=== PATIENT | female | born 1965 | race Caucasian/White ===

== ENCOUNTER 2019-06-26 06:07 | Observation (INO) | payer OTHER ==
[~2019-06-26] VITALS: Ht 167.6 cm; Wt 86.2 kg
[~2019-06-26 06:07] MED LIST: DIAZ5 PO; FIBROMYALGIA MED; HYDACE5 PO; PRED20 PO; PREG25 PO; TRAM50 PO; TRAMADOL PO
[2019-06-26] MEDS ORDERED: Prinivil10 MG (06:13)
[2019-06-26] MEDS ORDERED: PREG25 PO (06:13)
[2019-06-26 06:24] LABS: BASOPHILS ABSOLUTE AUTO 0.04 K/mm3 (0.00-0.23); BASOPHILS PERCENT AUTO 0 % (0-2); EOSINOPHILS PERCENT AUTO 0 % (0-6); Hematocrit 45.7 % (33.0-51.0); Hemoglobin 14.6 g/dL (11.5-16.0); IMMATURE GRAN ABSOLUTE AUTO 0.05 K/mm3 (0.00-0.10); IMMATURE GRAN PERCENT AUTO 0 % (0-1); LYMPHOCYTES ABSOLUTE AUTO 1.24 K/mm3 (0.84-5.20); LYMPHOCYTES PERCENT AUTO 10 % (21-46); MONOCYTES PERCENT AUTO 4 % (4-13); Mean Corpuscular HGB 27.5 pg (26.0-34.0); Mean Corpuscular HGB Conc 31.9 g/dL (31.5-36.5); Mean Corpuscular Volume 86 fL (80-100); Mean Platelet Volume 12.1 fL (9.1-12.4); NEUTROPHILS PERCENT AUTO 86 % (41-73); Platelet Count 268 K/mm3 (150-400); RDW Coefficient Variation 14.4 % (11.7-14.2); Red Blood Cell Count 5.31 M/mm3 (3.80-5.20); White Blood Cell Count 12.73 K/mm3 (4.00-11.30)
[2019-06-26 06:42] LABS: Alanine Aminotransfer (ALT/SGP 30 U/L (12-78); Albumin, Blood 3.8 g/dL (3.4-5.0); Albumin/Globulin Ratio 0.9 (0.8-1.8); Alk Phos 172 U/L (50-136); Anion Gap 10 mmol/L (6-16); Aspartate Aminotrans (AST/SGOT 19 U/L (12-37); Bilirubin, Total 0.3 mg/dL (0.1-1.0); Blood Urea Nitrogen 9 mg/dL (8-24); Bun/Creatinine Ratio 12.3 (12.0-20.0); CO2, Blood 23 mmol/L (21-32); Calcium, Blood 9.7 mg/dL (8.5-10.1); Chloride, Blood 103 mmol/L (98-108); Creatinine, Blood 0.73 mg/dL (0.40-1.00); Globulin, Blood 4.2 g/dL (2.2-4.0); Glomerular Filtration Rate >60 (60-); Glucose, Blood 160 mg/dL (70-99); Potassium, Blood 3.5 mmol/L (3.5-5.5); Sodium, Blood 136 mmol/L (136-145)
[2019-06-26 08:59] LABS: Source, Urine Clean Catch
[2019-06-26 09:03] LABS: Bilirubin, Urine Neg (Neg); Blood, Urine 1+ (Neg); Glucose Qualitative, Urine Neg (Neg); Ketones, Urine Neg (Neg); Leukocyte Esterase, Urine Neg (Neg); Nitrite, Urine Neg (Neg); Protein, Urine Neg (Neg); Urobilinogen, Urine NORM (Normal)
[2019-06-26 09:04] LABS: Appearance, Urine Clear (Clear); Color, Urine No Color (P-Yellow)
[2019-06-26 09:12] LABS: Bacteria Not Seen /hpf; Red Blood Cells, Urine Rare /hpf (0-2); Squamous Epithelial Cells Few /hpf (Few); White Blood Cells, Urine Not Seen /hpf (0-5)
--- NOTE | 2019-06-26 19:34 | NUR ---
SHIFT SUMMARY PT A&OX4, VSS, S/P LAP DORIS, 4 GAUZE SITES CDI. PAIN MANAGED WITH 1 TAB NORCO. CHELI PO, DENIES N&V. VOIDING WELL. AMB SBA TO BRP. REPORT PROVIDED TO PAULO BARRIENTOS.
--- NOTE | 2019-06-27 06:00 | NUR ---
SHIFT SUMMARY POD 1 S/P LAP DORIS. ABD SURGICAL SITE X4 C/D/I. PAIN MANAGED WITH PO MEDICATION. TOLERATING PO INTAKE. VOIDING WELL, IND AMBULATION TO BATHROOM. ENCOURAGED AMBULATION IN HALLWAYS. CURRENTLY IN BED WATCHING TV WITH CALL LIGHT IN REACH. WILL CONT TO MONITOR AND GIVE REPORT TO ONCOMING RN.
[2019-06-27] MEDS ORDERED: Norco 10-325 T1 EACH PO (10:09)
--- NOTE | 2019-06-27 15:35 | NUR ---
DISCHARGE PT'S PAIN WELL CONTROLLED, TOLERATING DIET WELL, NOT PASSING GAS BUT DISCUSSED BOWEL CARE, SCRIPT SENT WITH PT. AMBULATED OUT. W/C OFFERED.
== END 2019-06-27 15:37 | disposition home or self-care (01) ==
LOC: ER 06:07 → SURS 06:08 → ER 08:10 → SURS 08:10 → ER 08:58 → SURS 09:05
PROVIDERS: Emergency Medicine; ADMIT Surgery
PROC: 0FT44ZZ Resection of Gallbladder, Percutaneous Endoscopic Approach (ICD-10-PCS; principal; 2019-06-26 13:00)
PROC: BF10YZZ Fluoroscopy of Bile Ducts using Other Contrast (ICD-10-PCS; principal; 2019-06-26 13:00)
DX: K80.10 Calculus of gallbladder with chronic cholecystitis without obstruction (principal); I10 Essential (primary) hypertension; F17.210 Nicotine dependence, cigarettes, uncomplicated; Z79.899 Other long term (current) drug therapy; Z88.2 Allergy status to sulfonamides
CPT/HCPCS: 36415; 74300; 76705; 80053; 81001; 83690; 85025; 88304; 93005; 93010; 96361; 96365; 96375; 96376; 99285-25; C1894; G0378; J1100; J1885; J2370; J2405; J2543; J2704; J2710; J2765; J3010; J7030; J7120

== ENCOUNTER 2021-12-08 10:13 | Emergency (ER) | payer OTHER ==
[~2021-12-08] VITALS: Ht 170.2 cm; Wt 86.2 kg
[~2021-12-08 10:13] MED LIST changes: +Norco 10-325 T1 EACH PO; +Prinivil10 MG
[2021-12-08 11:45] LABS: Influenza A, PCR NEGATIVE (NEGATIVE); Influenza B, PCR NEGATIVE (NEGATIVE); Resp Syncytial Virus, PCR NEGATIVE (NEGATIVE); SARS-Cov-2 (COVID-19) PCR, MMC NEGATIVE (NEGATIVE)
[2021-12-08 12:19] LABS: BASOPHILS ABSOLUTE AUTO 0.06 K/mm3 (0.00-0.23); BASOPHILS PERCENT AUTO 1 % (0-2); EOSINOPHILS ABSOLUTE AUTO 0.03 K/mm3 (0.00-0.68); EOSINOPHILS PERCENT AUTO 0 % (0-6); Hematocrit 43.9 % (33.0-51.0); Hemoglobin 14.5 g/dL (11.5-16.0); IMMATURE GRAN ABSOLUTE AUTO 0.05 K/mm3 (0.00-0.10); IMMATURE GRAN PERCENT AUTO 0 % (0-1); LYMPHOCYTES ABSOLUTE AUTO 1.88 K/mm3 (0.84-5.20); LYMPHOCYTES PERCENT AUTO 15 % (21-46); MONOCYTES ABSOLUTE AUTO 0.58 K/mm3 (0.16-1.47); MONOCYTES PERCENT AUTO 5 % (4-13); Mean Corpuscular HGB 27.3 pg (26.0-34.0); Mean Corpuscular Volume 83 fL (80-100); Mean Platelet Volume 11.1 fL (9.1-12.4); NEUTROPHILS ABSOLUTE AUTO 9.59 K/mm3 (1.96-9.15); NEUTROPHILS PERCENT AUTO 79 % (41-73); Platelet Count 307 K/mm3 (150-400); RDW Coefficient Variation 15.1 % (11.7-14.2); RDW Standard Deviation 45.7 fL (35.1-46.3); Red Blood Cell Count 5.32 M/mm3 (3.80-5.20); White Blood Cell Count 12.19 K/mm3 (4.00-11.30)
[2021-12-08 12:35] LABS: Albumin, Blood 3.5 g/dL (3.4-5.0); Albumin/Globulin Ratio 0.9 (0.8-1.8); Bilirubin, Total 0.4 mg/dL (0.1-1.0); Bun/Creatinine Ratio 13.2 (12.0-20.0); Calcium, Blood 9.8 mg/dL (8.5-10.1); Creatinine, Blood 0.76 mg/dL (0.40-1.00); Globulin, Blood 3.9 g/dL (2.2-4.0); Potassium, Blood 3.9 mmol/L (3.5-5.5); Total Protein, Blood 7.4 g/dL (6.4-8.2)
[2021-12-08 16:09] LABS: Source, Urine Clean Catch
[2021-12-08 16:13] LABS: Appearance, Urine Clear (Clear); Bilirubin, Urine Neg (Neg); Blood, Urine 1+ (Neg); Glucose Qualitative, Urine Neg (Neg); Ketones, Urine Neg (Neg); Leukocyte Esterase, Urine Neg (Neg); Nitrite, Urine Neg (Neg); Protein, Urine Neg (Neg); Urobilinogen, Urine NORM (Normal)
[2021-12-08 16:14] LABS: Color, Urine Pale Yellow (P-Yellow)
[2021-12-08 16:26] LABS: Bacteria Few /hpf; Squamous Epithelial Cells Few /hpf (Few); White Blood Cells, Urine 0-2 /hpf (0-5)
[2021-12-08] MEDS ORDERED: ONDA4ODT SL (17:05)
[2021-12-08] MEDS ORDERED: IBUP400 PO (17:05)
== END 2021-12-08 17:25 | disposition home or self-care (01) ==
LOC: ER 10:13
PROVIDERS: Physician Assistant
DX: R10.10 Upper abdominal pain, unspecified (principal); R51.9 Headache, unspecified; I10 Essential (primary) hypertension; F17.210 Nicotine dependence, cigarettes, uncomplicated; Z20.822 Contact with and (suspected) exposure to COVID-19; Z88.2 Allergy status to sulfonamides
CPT/HCPCS: 0241U; 36415; 71045; 80053; 81001; 83690; 85025; A9270; J1200; J1885; J2765; J7120

== ENCOUNTER 2022-07-02 15:25 | Emergency (ER) | payer OTHER ==
[~2022-07-02] VITALS: Ht 167.6 cm; Wt 85.7 kg
[~2022-07-02 15:25] MED LIST changes: +IBUP400 PO; +ONDA4ODT SL
== END 2022-07-02 16:43 | disposition home or self-care (01) ==
LOC: ER 15:25
DX: R03.0 Elevated blood-pressure reading, without diagnosis of hypertension (principal); R51.9 Headache, unspecified; F17.210 Nicotine dependence, cigarettes, uncomplicated; M54.9 Dorsalgia, unspecified; G89.29 Other chronic pain
CPT/HCPCS: 99283

== ENCOUNTER 2023-10-27 09:26 | Day surgery (SDC) | payer OTHER ==
[2023-10-27] VITALS (19 sets, daily range): BP systolic 131–167; BP diastolic 62–119
[~2023-10-27] VITALS: Ht 167.6 cm; Wt 83.4 kg
[~2023-10-27 09:26] MED LIST changes: +CODACE30 PO; +Cyclobenzaprine5 MG PO; +DULO30 PO; +LORA10ER PO
[2023-10-27] MEDS ORDERED: Lactated Ringer's 1,000 ML IV SCH (09:40)
[2023-10-27] MEDS ORDERED: propofoL 40 ML IV ONE (11:07)
--- NOTE | 2023-10-27 11:24 | NUR ---
10/27/23 1124 Eric Abbott HISTORY, CHART, MEDICATIONS AND ALLERGIES REVIEWED BEFORE START OF PROCEDURE. PATIENT CONFIRMS NPO STATUS AND AGREES WITH SCHEDULED PROCEDURE. 3-LEAD EKG REVIEWED WITH PHYSICIAN PRIOR TO START OF PROCEDURE. MONITOR INTACT WITH CONTINUOUS PULSE OXIMETRY,CAPNOGRAPHY, 3-LEAD EKG, INTERMITTENT BP. SUPPLEMENTAL O2 TO BE TITRATED THROUGHOUT PROCEDURE TO MAINTAIN O2 SATURATION ABOVE 90%. PATIENT DETERMINED TO BE ASA APPROPRIATE FOR PROPOFOL SEDATION PRIOR TO START OF PROCEDURE BY
--- NOTE | 2023-10-27 11:54 | NUR ---
PT TO DAY SURGERY STEP DOWN FROM COLONOSCOPY. BEDSIDE REPORT RECEIVED. PT IS AWAKE, ALERT AND ORIENTED, BUT TIRED; ABLE TO MOVE SELF IN BED. VSS. PT HAS NO COMPLAINTS AT THIS TIME.
--- NOTE | 2023-10-27 12:02 | NUR ---
TOLERATING PO FLUIDS WELL. Discharge instructions reviewed with patient. Patient verbalizes understanding. Copy given to patient to take home. Patient States Post-Procedure ride home has been arranged.
--- NOTE | 2023-10-27 12:13 | NUR ---
Discharge instructions reviewed with patient. Patient verbalizes understanding. Copy given to patient to take home. Patient States Post-Procedure ride home has been arranged.
--- NOTE | 2023-10-27 12:20 | NUR ---
Patient up to Ambulate independently. Gait steady. Discharged via wheelchair to private car for ride home.
== END 2023-10-27 12:21 | disposition home or self-care (01) ==
LOC: ORSCMMR 09:26 → ORD 10:30 → ORSCMMR 10:30
PROVIDERS: Internal Medicine Gastroenterology
PROC: 0DBN8ZX Excision of Sigmoid Colon, Via Natural or Artificial Opening Endoscopic, Diagnostic (ICD-10-PCS; principal; 2023-10-27 10:30)
PROC: 0DBL8ZX Excision of Transverse Colon, Via Natural or Artificial Opening Endoscopic, Diagnostic (ICD-10-PCS; principal; 2023-10-27 10:30)
DX: Z12.11 Encounter for screening for malignant neoplasm of colon (principal); D12.3 Benign neoplasm of transverse colon; D12.5 Benign neoplasm of sigmoid colon; I10 Essential (primary) hypertension; F32.A Depression, unspecified; Z79.899 Other long term (current) drug therapy; F17.210 Nicotine dependence, cigarettes, uncomplicated
CPT/HCPCS: J2704; J7120

== ENCOUNTER 2023-12-14 07:02 | Emergency (ER) | payer OTHER ==
[~2023-12-14] VITALS: Ht 170.2 cm; Wt 86.2 kg
[2023-12-14 08:23] LABS: BASOPHILS ABSOLUTE AUTO 0.06 K/mm3 (0.00-0.23); BASOPHILS PERCENT AUTO 1 % (0-2); EOSINOPHILS ABSOLUTE AUTO 0.33 K/mm3 (0.00-0.68); EOSINOPHILS PERCENT AUTO 4 % (0-6); Hematocrit 45.1 % (33.0-51.0); Hemoglobin 14.6 g/dL (11.5-16.0); IMMATURE GRAN ABSOLUTE AUTO 0.01 K/mm3 (0.00-0.10); IMMATURE GRAN PERCENT AUTO 0 % (0-1); LYMPHOCYTES ABSOLUTE AUTO 2.62 K/mm3 (0.84-5.20); LYMPHOCYTES PERCENT AUTO 33 % (21-46); MONOCYTES ABSOLUTE AUTO 0.59 K/mm3 (0.16-1.47); MONOCYTES PERCENT AUTO 8 % (4-13); Mean Corpuscular HGB 28.4 pg (26.0-34.0); Mean Corpuscular HGB Conc 32.4 g/dL (31.5-36.5); Mean Corpuscular Volume 88 fL (80-100); Mean Platelet Volume 11.3 fL (9.1-12.4); NEUTROPHILS PERCENT AUTO 54 % (41-73); Platelet Count 277 K/mm3 (150-400); RDW Coefficient Variation 14.7 % (11.7-14.2); RDW Standard Deviation 47.5 fL (35.1-46.3); Red Blood Cell Count 5.14 M/mm3 (3.80-5.20); White Blood Cell Count 7.91 K/mm3 (4.00-11.30)
[2023-12-14 08:38] LABS: Bun/Creatinine Ratio 19.6 (12.0-20.0); Calcium, Blood 10.1 mg/dL (8.5-10.1); Creatinine, Blood 0.77 mg/dL (0.40-1.00); Potassium, Blood 3.8 mmol/L (3.5-5.5)
[2023-12-14] MEDS ORDERED: OxyCODONE HCL 5 MG TAB PO ONE (08:50)
[2023-12-14] MEDS ORDERED: Acetaminophen 500 MG Tab PO ONE (08:50)
[2023-12-14] MEDS ORDERED: AmLODIPine Besylate 5 MG Tab PO ONE (09:10)
[2023-12-14] MEDS ORDERED: AMLO5 PO (09:14)
[2023-12-14 09:54] VITALS: BP 158/90
== END 2023-12-14 12:27 | disposition home or self-care (01) ==
LOC: ER 07:02
PROVIDERS: Student in an Organized Health Care Education/Training Program
DX: I10 Essential (primary) hypertension (principal); G89.29 Other chronic pain; M54.2 Cervicalgia; M51.26 Other intervertebral disc displacement, lumbar region; Z98.890 Other specified postprocedural states
CPT/HCPCS: 80048; 84484; 85025; 93005; 93010; 99283-25; A9270